=== PATIENT | female | born 1980 | race Hispanic/Latino ===

== ENCOUNTER → 2017-03-19 | Outpatient (CLI) | payer SELFPAY ==
[~2017-03-19] MED LIST: PREN1TAB39
--- NOTE | 2017-03-19 13:54 | Diagnostic Imaging Report ---
INDICATION: Pelvic pain Uterus measures 7.5 x 4.9 x 3.9 cm. Endometrial stripe is 7 mm. Ovaries are normal in size and echogenicity and have normal blood flow. There is no free fluid. IMPRESSION: Normal pelvic sonogram. Dictated by: Dictated on workstation # [id number]
== END ==
LOC: RAD 11:30
PROVIDERS: ATTEND Nurse Practitioner Family
DX: Z01.419 Encounter for gynecological examination (general) (routine) without abnormal findings (principal); R10.2 Pelvic and perineal pain
CPT/HCPCS: 76830; 76856

== ENCOUNTER 2018-09-17 08:22 | Inpatient (IN) | payer OTHER ==
[2018-09-17] VITALS (18 sets, daily range): BP systolic 128–186; BP diastolic 70–111
[~2018-09-17] VITALS: Ht 152.4 cm; Wt 96.2 kg
--- NOTE | 2018-09-17 08:15 | NUR ---
LISET SWENSON presented to unit via ambulation from ED, accompanied by family, with c/o contractions. LISET SWENSON weighed, gowned, voided, and to bed. EFHM and TOCO applied, VS taken. LISET SWENSON oriented to bed controls, call light, TV, heat, and A/C controls.
[2018-09-17] MEDS ORDERED: D5 LR IV SOLUTION 1,000 ML IV ONE (08:27)
--- NOTE | 2018-09-17 08:27 | NUR ---
Dr. Rebollar called and notified of pt arrival to unit c/o ctx since last night. notified of EFM, ctx pattern, SVE, history, other assessment findings. Order to admit, bedside sono for verification of presenting part.
--- NOTE | 2018-09-17 08:36 | NUR ---
Dr. Rebollar updated on bedside sono and repeat SVE per Bernadette Mehta RN. Order for US to do bedside sono for better verification.
--- NOTE | 2018-09-17 08:40 | NUR ---
Siddhartha called and notified of stat US order
[2018-09-17] MEDS ORDERED: D5 LR IV SOLUTION 1,000 ML IV SCH (08:44)
[2018-09-17] MEDS ORDERED: MINERAL OIL CONCENTRATE 99.9% 15 ML UDC TOP PRN (08:45)
[2018-09-17] MEDS ORDERED: BETAMETHASONE ACE/NA PHOS 6 MG/ML (CELESTONE SOLUSPAN) ONE (08:46)
[2018-09-17] MEDS ORDERED: AMPICILLIN FOR IV USE 2,000 MG VIAL ONE (08:46)
[2018-09-17] MEDS ORDERED: WATER (STERILE) FOR INJECTION 20 ML ONE (08:47)
[2018-09-17 09:01] LABS: BASOPHILS % (AUTO) 0 % (0-10); EOSINOPHILS # (AUTO) 0.1 10^3/uL (0.0-0.3); EOSINOPHILS % (AUTO) 1 % (0-10); HEMATOCRIT 41 % (35-52); HEMOGLOBIN 14.6 G/DL (11.5-16.0); LYMPHOCYTES % (AUTO) 29 % (12-44); MEAN CORPUSCULAR HEMOGLOBIN 28 PG (25-34); MEAN CORPUSCULAR HGB CONC 36 G/DL (32-36); MEAN CORPUSCULAR VOLUME 79 FL (80-99); MEAN PLATELET VOLUME 11.5 FL (7.4-10.4); MONOCYTES # (AUTO) 0.6 X 10^3 (0.0-1.0); MONOCYTES % (AUTO) 6 % (0-12); NEUTROPHILS # (AUTO) 6.6 X 10^3 (1.8-7.8); NEUTROPHILS % (AUTO) 64 % (42-75); PLATELET COUNT 144 10^3/uL (130-400); WHITE BLOOD COUNT 10.2 10^3/uL (4.3-11.0)
--- NOTE | 2018-09-17 09:02 | NUR ---
Siddhartha called again, on way to unit for US.
--- NOTE | 2018-09-17 09:05 | History & Physical-OB ---
OB - Chief Complaint & HPI Date/Time Date of Admission: Date of Admission: September 17, 2018 at 08:43 Date seen by a Provider: September 17, 2018 Time Seen by a Provider: 08:50 Chief Complaint/History OB-Reason for Admission/Chief: Onset of Labor Hx : 4 Hx Para: 3 Expected Date of Delivery: Oct 26, 2018 Gestational Age in Weeks: 34 Gestational Age in Days: 3 Admission Nurse Assessment Rev: Yes History of Labs GBS not performed in clinic yet Allergies and Home Medications Allergies Coded Allergies: No Known Drug Allergies (Unverified , 10/05/08) Patient Home Medication List Home Medication List Reviewed: Yes OB - History Hx of Present Care: Yes Ultrasounds: Normal mid trimester US Obstetrical Complications: Gestational Diabetes Medical Complications: Other (diabetes) Obstetrical History Hx Termination: No Hx Multiple Gestation: No Hx Stillbirth: No Hx Complication: No Hx Induced Hypertens: No Hx Maternal Gestational Diabet: No Delivery History Hx Dystocia: No Hx Large For Gestational Age I: No Hx Small for Gestational Age I: No Hx Section: No Hx Vaginal Delivery Post C-Sec: No Hx Blood Disorders: No Patient Past Medical History Diabetes OB - Admission Exam Physical Exam Heart: Rhythm Normal Lungs: Clear Cervical Dilatation: 6cm Effacement: 100% Station: Ballotable Membranes: Intact Heart Rate: 140's Accelerations: Accelerations Present Short Term Variability: Present Jail Variability: Average (6-25) Contractions on Admission: < 5 Minutes Apart Intensity: Moderate Labs Laboratory Tests Test 09/17/18 08:45 Range/Units OB - Assessment/Plan/Diagnosis Assessment Assessment: active labor (at 34w3d gestation) Admission Dx IUP at 34w3d gestation in active labor Gestational diabetes-on metformin Admission Status: Inpatient Order (span 2 midnights) Reason for Inpatient Admission: Admit for expectant managment with eminent delivery when membranes rupture. Confirming position of infant shoaib Plan Plan: Expectant Management Other Plan Ampicillin 2 gm on admit. Betamethasone on admit. US to confirm position. ANA QUINTERO MD September 17, 2018 09:05
[2018-09-17] MEDS ORDERED: AMPICILLIN FOR IV USE 2,000 MG in WATER (STERILE) FOR INJECTION 14.8 ML IV SCH (09:09)
[2018-09-17] MEDS ORDERED: BETAMETHASONE ACE/NA PHOS 6 MG/ML (CELESTONE SOLUSPAN) IM ONE (09:15)
--- NOTE | 2018-09-17 10:09 | Diagnostic Imaging Report ---
Indication: Active labor. Study is performed to evaluate position. Findings: There is a single live fetus in a cephalic presentation. heart rate was recorded at 140 beats per minute. Placenta is anterior. Amniotic fluid volume is normal. Impression: Fetus is cephalic. Dictated by: Dictated on workstation # [id number]
[2018-09-17] MEDS ORDERED: MEPIVACAINE (CARBOCAINE) 2% 50 ML VIAL ONE (10:37)
[2018-09-17] MEDS ORDERED: OXYTOCIN/NORMAL SALINE 500 ML IV ONE (10:37)
[2018-09-17] MEDS ORDERED: OXYTOCIN/NORMAL SALINE 500 ML IV SCH (11:53)
--- NOTE | 2018-09-17 11:53 | OB Labor & Delivery Record ---
L&D History Date of Service Date of Service: September 17, 2018 History Expected Date of Delivery: Oct 26, 2018 Gestational Age in Weeks: 34 Hx : 4 Hx Para: 3 Complications Events: Gestational Diabetes Operative Indications (Cesarea: N/A-Vaginal Delivery Intrapartal Events: None L&D Stage1 Stage One Onset of Labor - Date: September 17, 2018 Onset of Labor - Time: 06:00 Monitors and Tracing Monitor Mode: Internal Heart Rate: 140 Monitor Accelerations: Uniform Monitor Decelerations: Variable Station: -2 Assisted Variability: Average (6-10) Short Term Variability: Present Presentation: Vertex Vital Signs VS - Last 72 Hours, by Label 09/17/18 09:03 Temp 97.8 Pulse 77 Resp 18 B/P (MAP) 152/94 (113) O2 Delivery Room Air Signs of Distress by FHT Signs of Distress no Rupture of Membranes Spontaneous Ruture of Membrane: No Amniotic Membrane Rupture Time: 11:20 Amniotic Membrane Fluid Desc.: Clear L&D Stage2 Stage Two Stage II Date: September 17, 2018 Stage II Time: 11:39 Monitors and Tracing Monitor Mode: Internal Heart Rate: 140 Monitor Accelerations: Uniform Monitor Decelerations: Variable Decorative Cutting Machine Tender Variability: Average (6-10) Short Term Variability: Present Position: Left Occiput Anterior Presentation: Vertex Signs of Distress by FHT Signs of Distress no Cord Descript/Complications Cord Vessel Description: 3 Vessels Delivery Type Infant Delivery Method: Spontaneous Vaginal Anterior Shoulder: Left Episiotomy/Perineal Laceration Laceraction(s)/Extensions: No Condition of Infant Condition of Condition of : Living Exam: No Observed Abnormalities Resuscitation Resuscitation: N/A - Spontaneous Resp Resuscitation Comments: Dr Carias present and RT. L&D Stage3 Stage Three Stage III Date: September 17, 2018 Stage III Time: 12:43 Pictocin Pitocin ml/hr: 125 Placenta Delivery Placenta Delivery: Spontaneous Delivery Summary Summary Estimated blood loss (mL): 200 Condition of Delivery Examined: Cervix Examined Post Hemorrhage: No Intervention Required none ANA QUINTERO MD September 17, 2018 11:53
[2018-09-17] MEDS ORDERED: MEASLES,MUMPS,RUBELLA 1 EA INJ SQ ONE (12:00)
[2018-09-17] MEDS ORDERED: TETANUS,DIPTH,PERTUSS P/F (BOOSTRIX) 0.5 ML VIAL IM ONE (12:00)
[2018-09-17] MEDS ORDERED: WITCH HAZEL(TUCKS) 40 EA JAR TOP PRN (12:00)
[2018-09-17] MEDS ORDERED: BENZOCAINE/MENTHOL (DERMOPLAST) 56 ML CAN TP PRN (12:00)
--- NOTE | 2018-09-17 13:11 | NUR ---
FFU/0 lt rubra noted. no clots expressed.
[2018-09-17] MEDS ORDERED: AMPICILLIN FOR IV USE 1,000 MG in WATER (STERILE) FOR INJECTION 7.4 ML IV SCH (13:15)
[2018-09-17] MEDS ORDERED: CATHETER FLUSH 10 ML SYR IV SCH ×2 (14:00)
--- NOTE | 2018-09-17 14:30 | NUR ---
FFU/0. lt-moderate rubra noted. des-care offered. v-pad and panties in place. pt transferred to room 309 via w/c with this RN and children @ side.
[2018-09-17] MEDS: ACETAMINOPHEN 500 MG TAB (TYLENOL) PO SCH ×2 (14:40→20:21)
[2018-09-17] MEDS: IBUPROFEN 600 MG (MOTRIN) TAB PO SCH ×2 (14:40→20:21)
--- NOTE | 2018-09-17 16:10 | NUR ---
IV TO SALINE LOCK. CHILDREN AT BEDSIDE. PT INSTRUCTED TO CALL STAFF TO ASSIST WITH GETTING UP TO THE BATHROOM THE FIRST TIME UP. STATES UNDERSTANDING.
--- NOTE | 2018-09-17 18:50 | NUR ---
assisted up to BR. +void. des-care instructions given, returned demonstration. v-pad and panties in place.
--- NOTE | 2018-09-17 19:08 | NUR ---
report given to CHLOE Mao.
--- NOTE | 2018-09-17 19:10 | NUR ---
was called with update on vs. no new orders received.
--- NOTE | 2018-09-17 20:20 | NUR ---
Patient awake in bed. Family and visitors present in room. Patient able to voice no pain when asked. Will return for assessment. Call light placed in reach of patient prior to this RN leaving room.
[2018-09-17] MEDS: DOCUSATE SODIUM 100 MG (COLACE) CAP PO SCH (20:21)
[2018-09-18 01:55] VITALS: BP 142/81
[2018-09-18] MEDS: ACETAMINOPHEN 500 MG TAB (TYLENOL) PO SCH ×3 (01:55→18:00)
[2018-09-18] MEDS: IBUPROFEN 600 MG (MOTRIN) TAB PO SCH ×4 (01:55→18:31)
[2018-09-18 05:49] VITALS: BP 125/69
[2018-09-18 06:54] LABS: BASOPHILS % (AUTO) 0 % (0-10); EOSINOPHILS % (AUTO) 0 % (0-10); HEMATOCRIT 35 % (35-52); HEMOGLOBIN 12.5 G/DL (11.5-16.0); LYMPHOCYTES # (AUTO) 2.9 X 10^3 (1.0-4.0); LYMPHOCYTES % (AUTO) 15 % (12-44); MEAN CORPUSCULAR HEMOGLOBIN 29 PG (25-34); MEAN CORPUSCULAR HGB CONC 36 G/DL (32-36); MEAN CORPUSCULAR VOLUME 79 FL (80-99); MEAN PLATELET VOLUME 11.3 FL (7.4-10.4); MONOCYTES # (AUTO) 0.7 X 10^3 (0.0-1.0); MONOCYTES % (AUTO) 4 % (0-12); NEUTROPHILS # (AUTO) 15.3 X 10^3 (1.8-7.8); NEUTROPHILS % (AUTO) 81 % (42-75); PLATELET COUNT 169 10^3/uL (130-400); RED CELL DISTRIBUTION WIDTH 13.2 % (10.0-14.5); WHITE BLOOD COUNT 18.9 10^3/uL (4.3-11.0)
--- NOTE | 2018-09-18 07:35 | Discharge Summary ---
Diagnosis/Chief Complaint Date of Admission September 17, 2018 at 08:43 Date of Discharge September 18, 2018 Admission Diagnosis Admission Diagnosis 1. Intrauterine at 34 weeks 3 days gestation 2. Gestational diabetes Discharge Diagnosis 1. Intrauterine at 34 weeks 3 days gestation 2. Gestational diabetes Chief Complaint/HPI Chief Complaint/HPI 38-year-old 4 now T3 P1 L4 who initially presented to labor and delivery with uterine contractions at 34 weeks and 3 days gestation on September 17, 2018. Patient was noted to be with diabetes and gestational diabetes during her care. She did not have any complications as her glucose readings for fasting and postprandial were controlled. She was taking metformin. She presented to labor and delivery with 6-8 cm dilated bulging membranes with contractions every 1-2 minutes. Her due date was noted to be October 26, 2018. Discharge Summary-OBS Procedures 1. Spontaneous vaginal delivery Discharge Physical Examination Allergies: Coded Allergies: No Known Drug Allergies (Unverified , 10/05/08) Vitals & I&Os Vital Sign - Last 12Hours Date Time Temp Pulse Resp B/P (MAP) Pulse Ox O2 Delivery O2 Flow Rate FiO2 09/18/18 05:49 97.2 73 18 125/69 (87) 99 Room Air General Appearance: No Acute Distress Respiratory: Clear to Auscultation Cardiovascular: Regular Rate Abdominal: Soft (with uterus firm) Hospital Course Patient was admitted during the morning of September 17, 2018 in active labor. She ultimately had ultrasound to confirm vertex presenting part. She also had re ceived 2 g of ampicillin on admission as well as 12 of betamethasone. She ultimately underwent amniotomy and quickly went on to deliver a viable male. It was passed off to the care of the nursery nurse as well as trimming caser Dr Carias Mother had no perineal tears. Following delivery she underwent routine care orders. She was noted to have a few elevated blood pressures but overall the blood pressure stabilized by the morning of dismissal. Patient was eager for dismissal as she missed her baby who was transferred to [facility] NICU Her hemoglobin the day after delivery was noted to be 12.5 and this was compared to her initial on admission of 14.6.her dismissal blood pressure was noted to be 125/64. She had all questions answered on day of dismissal. Her daughter was present upon making rounds and interpreted. Labs Laboratory Tests 09/17/18 08:45: White Blood Count 10.2, Red Blood Count 5.20, Hemoglobin 14.6, Hematocrit 41, Mean Corpuscular Volume 79L, Mean Corpuscular Hemoglobin 28, Mean Corpuscular Hemoglobin Concent 36, Red Cell Distribution Width 13.0, Platelet Count 144, Mean Platelet Volume 11.5H, Neutrophils (%) (Auto) 64, Lymphocytes (%) (Auto) 29, Monocytes (%) (Auto) 6, Eosinophils (%) (Auto) 1, Basophils (%) (Auto) 0, Neutrophils # (Auto) 6.6, Lymphocytes # (Auto) 3.0, Monocytes # (Auto) 0.6, Eosinophils # (Auto) 0.1, Basophils # (Auto) 0.0 09/17/18 08:58: Glucometer 152H 09/18/18 06:37: White Blood Count 18.9H, Red Blood Count 4.36, Hemoglobin 12.5, Hematocrit 35, Mean Corpuscular Volume 79L, Mean Corpuscular Hemoglobin 29, Mean Corpuscular Hemoglobin Concent 36, Red Cell Distribution Width 13.2, Platelet Count 169, Mean Platelet Volume 11.3H, Neutrophils (%) (Auto) 81H, Lymphocytes (%) (Auto) 15, Monocytes (%) (Auto) 4, Eosinophils (%) (Auto) 0, Basophils (%) (Auto) 0, Neutrophils # (Auto) 15.3H, Lymphocytes # (Auto) 2.9, Monocytes # (Auto) 0.7, Eosinophils # (Auto) 0.0, Basophils # (Auto) 0.0 Discharge Instructions to patient/family Please see electronic discharge instructions given to patient. Discharge Medications Reviewed and agree with Discharge Medication list on patient's Discharge Instruction sheet Clinical Quality Measures DVT/VTE Risk/Contraindication: Risk Factor Score Per Nursin RFS Level Per Nursing on Admit: 1=Low/No VTE PPX ANA QUINTERO MD September 18, 2018 07:35
[2018-09-18] MEDS ORDERED: IBUP-844 PO (07:38)
--- NOTE | 2018-09-18 07:40 | Discharge Inst-Women's Service ---
Discharge Inst-Women's Serv Depart Medication/Instructions New, Converted or Re-Newed RX: Transmitted to Pharmacy (at [facility]) Consults/Follow Up Additional Follow Up: Yes (Dr Quintero at [facility] in 6 weeks. Will discuss referral for tubal ligation) Activity Activity: Activity as Tolerated NO SMOKING: NO SMOKING Nothing Inside Vagina: No Hannah (for 6 weeks) Diet Discharge Diet: Regular Diet Return to The Hospital For: as below Symptoms to Report to : Bleeding Excessive, Pain Increased, Fever Over 101 Degrees F, Cramps in Feet or Legs, Vaginal Discharge Foul For Any Problems or Questions: Contact Your Physician ANA QUINTERO MD September 18, 2018 07:40
--- NOTE | 2018-09-18 10:00 | NUR ---
THIS RN GIVES REPORT TO CHLOE LARA. THIS RN HAS NOT BEEN ABLE TO ROUND ON PT YET THIS AM DUE TO CARE OF OTHER PTS. MOTRIN DUE NOW AT 1000, VS DUE, NEEDS TO ASK ABOUT TDAP, DC TO HOME TODAY.
[2018-09-18 11:43] VITALS: BP 158/86
[2018-09-18] MEDS: DOCUSATE SODIUM 100 MG (COLACE) CAP PO SCH (11:54)
--- NOTE | 2018-09-18 15:30 | NUR ---
Gave verbal and handouts of home/discharge instructions to pt. Use phone manufacturing teacher. Pt verbalized understanding and verified by signing signature page.
[2018-09-18 17:06] VITALS: BP 152/81
--- NOTE | 2018-09-18 19:45 | NUR ---
S/O present to slate picker pt, pt belongings gathered per family, pt shows no ss distress, to wc and escorted off unit and hospital campus per rn to private vehicle passenger seat.
== END 2018-09-18 19:45 | disposition home or self-care (01) | DRG 807 ==
LOC: WSo 08:22 → LDRP 08:23 → WSo 08:43 → LDRP 08:43
PROVIDERS: ADMIT Family Medicine; ATTEND Family Medicine
PROC: 10E0XZZ Delivery of Products of Conception, External Approach (ICD-10-PCS; principal; 2018-09-17)
DX: O60.14X0 Preterm labor third trimester with preterm delivery third trimester, not applicable or unspecified (principal); O24.415 Gestational diabetes mellitus in pregnancy, controlled by oral hypoglycemic drugs; Z3A.34 34 weeks gestation of pregnancy; Z37.0 Single live birth
CPT/HCPCS: 36415; 76815; 82962; 85025; 86850; 86900; 86901; 99212